=== PATIENT | male | born 1980 | race Caucasian/White ===

== ENCOUNTER → 2018-09-02 03:23 | Emergency (ER) | payer OTHER ==
[~2018-09-02 03:23] MED LIST: Tetan/Diph/Pertus SYR(Tdap)* 0.5 ML SYR(BOOSTRIX) use SYR IM ONE
--- NOTE | 2018-09-02 03:36 | ED ---
Laceration/Wound HPI - HPI Summary HPI Summary: This patient is a 38 year old M presenting to [facility] with a chief complaint of right wrist laceration from banding material at work since [employer]. The dressing was in place upon arrival. - History of Current Complaint Stated Complaint: WRIST INJURY Hx Obtained From: Patient Pain Intensity: 0 - Allergy/Home Medications Allergies/Adverse Reactions: Allergies Allergy/AdvReac Type Severity Reaction Status Date / Time No Known Allergies Allergy Verified 09/02/18 03:26 PMH/Surg Hx/FS Hx/Imm Hx Endocrine/Hematology History: Denies: Hx Diabetes Cardiovascular History: Denies: Hx Coronary Artery Disease Respiratory History: Denies: Hx Asthma Infectious Disease History: No Infectious Disease History: Denies: Traveled Outside the [place] in Last 30 Days - Family History Known Family History: Positive: Diabetes Negative: Cardiac Disease, Hypertension - Social History Alcohol Use: None Hx Tobacco Use: Yes Smoking Status (MU): Heavy Every Day Tobacco Smoker Review of Systems Negative: Fever Positive: Other - Right wrist laceration All Other Systems Reviewed And Are Negative: Yes Physical Exam - Summary Physical Exam Summary: Appearance: Well-appearing, Well-nourished, lying in bed comfortable Skin: Warm, dry, no obvious rash. Right volar forearm has a 3.5 cm longitudinal laceration deep into the muscles but sparing the tendons. Eyes: sclera anicteric, no conjunctival pallor ENT: mucous membranes moist Neck: deferred Respiratory: No signs of respiratory distress Cardiovascular: Appears well perfused, pulses are nml Abdomen: deferred Musculoskeletal: Moving all 4 extremities without obvious discomfort. There is no sign of neurovascular injury to the right upper extremity. Neurological: Awake and alert, mentation is normal, speech is fluent and appropriate Psychiatric: affect is normal, does not appear anxious or depressed Triage Information Reviewed: Yes Vital Signs On Initial Exam: Initial Vitals Temp Pulse Resp BP Pulse Ox 98.8 F 94 18 147/92 98 09/02/18 03:26 09/02/18 03:26 09/02/18 03:26 09/02/18 03:26 09/02/18 03:26 Vital Signs Reviewed: Yes Procedures - Laceration/Wound Repair 03:36 Location: upper extremity - Right wrist Anesthesia: .5% - mix of lidocaine and epinephrine Length, Depth and Shape: 3.5 cm longitudinal laceration deep into the muscles but sparing the tendons Laceration/Wound Explored: clean - with copious amounts of tap water Suture Type: Nylon - 4/0 Number of Sutures: 6 Sterile Dressing Applied?: Yes - Gauze Diagnostics - Vital Signs Vital Signs Temp Pulse Resp BP Pulse Ox 09/02/18 03:26 98.8 F 94 18 147/92 98 - Laboratory Lab Statement: Any lab studies that have been ordered have been reviewed, and results considered in the medical decision making process. Laceration Repair Course/Dx - Course Course Of Treatment: This patient is a 38 year old M presenting to [facility] with a chief complaint of right wrist laceration from banding material at work since [employer]. The dressing was in place upon arrival. I sutured the laceration, applied a gauze dressing, and ordered a tetanus shot. The patient was discharged with instructions to return if there are signs of infection. - Clinical Impression Provider Diagnoses: Laceration of right forearm without foreign body Discharge - Sign-Out/Discharge Documenting (check all that apply): Patient Departure - D/C - Discharge Plan Condition: Good Disposition: HOME Patient Education Materials: Care For Your Stitches (ED), Laceration (ED) Additional Instructions: Check with your employer as to where to go to have the stitches removed. This should be done in 7-10 days, so early next week. - Billing Disposition and Condition Condition: GOOD Disposition: Home - Attestation Statements Document Initiated by Cheyenne: Yes Documenting Scribe: Jose L Hernandez Provider For Whom Cheyenne is Documenting (Include Credential): Hasmukh Black MD Scribe Attestation: Jose L Dahl, scribed for Hasmukh Black MD on 09/02/18 at 0414. Scribe Documentation Reviewed: Yes Provider Attestation: The documentation as recorded by the Jose L galvan accurately reflects the service I personally performed and the decisions made by me, Hasmukh Black MD Status of Scribe Document: Viewed
== END | disposition home or self-care (01) ==
LOC: ED 03:23
DX: S51.811A Laceration without foreign body of right forearm, initial encounter (principal); W45.8XXA Other foreign body or object entering through skin, initial encounter; Y92.89 Other specified places as the place of occurrence of the external cause; F17.210 Nicotine dependence, cigarettes, uncomplicated
CPT/HCPCS: 12001; 90471; 90715; 99282